=== PATIENT | male | born 1940 | race Caucasian/White ===

== ENCOUNTER 2022-02-06 14:42 | Emergency (ER) | payer MEDICARE ==
[~2022-02-06] VITALS: Ht 182.9 cm; Wt 108.9 kg
[2022-02-06 15:48] LABS: BASOPHILS % (AUTO) 0.6 % (0.0-5.0); EOSINOPHILS % (AUTO) 4.9 % (0.0-8.0); HEMATOCRIT 43.7 % (42-54); LYMPHOCYTES % (AUTO) 36.2 % (21.0-51.0); MEAN CORPUSCULAR HEMOGLOBIN 32.3 pg (27.0-33.0); MEAN CORPUSCULAR HGB CONC 34.3 g/dL (32.0-36.0); PLATELET COUNT (AUTO) 197 K/uL (130-400); RED BLOOD CELL COUNT(AUTO) 4.65 MIL/uL (4.50-6.20); RED CELL DISTRIBUTION WIDTH 13.5 % (11.0-15.5); WHITE BLOOD COUNT (AUTO) 6.2 K/uL (4.8-10.8)
[2022-02-06 15:58] LABS: CREATININE 1.2 mg/dL (0.5-1.5); POTASSIUM 3.7 mmol/L (3.5-5.1)
[2022-02-06 16:05] LABS: ALBUMIN 3.7 g/dL (3.5-5.0); TOTAL PROTEIN, SERUM 7.6 g/dL (6.0-8.3)
[2022-02-06 16:36] LABS: APPEARANCE,URINE CLEAR (CLEAR); BILIRUBIN,URINE NEGATIVE (NEGATIVE); COLOR,URINE LIGHT-YELLOW (YELLOW); GLUCOSE, URINE (UA) NEGATIVE (NEGATIVE); KETONES,URINE NEGATIVE (NEGATIVE); LEUKOCYTE ESTERASE ,URINE NEGATIVE Leu/uL (NEGATIVE); NITRATE,URINE NEGATIVE (NEGATIVE); OCCULT BLOOD,URINE NEGATIVE (NEGATIVE); PH,URINE 6.5 (5.0-8.0); PROTEIN,URINE NEGATIVE (NEGATIVE); UROBILINOGEN,URINE 0.2 mg/dL (0.2-1.0)
[2022-02-06 16:38] LABS: RBC,URINE 0-1 /HPF (0-1); WBC,URINE 0-1 /HPF (0-1)
[2022-02-06 17:08] VITALS: BP 160/74
== END 2022-02-06 17:08 | disposition home or self-care (01) ==
LOC: EDH 14:42
DX: R04.0 Epistaxis (principal); Z86.718 Personal history of other venous thrombosis and embolism; I10 Essential (primary) hypertension; T50.905A Adverse effect of unspecified drugs, medicaments and biological substances, initial encounter; Y92.89 Other specified places as the place of occurrence of the external cause
CPT/HCPCS: 36415; 80053; 81001; 83690; 84484; 85025; 86850; 86900; 86901; 93005

== ENCOUNTER 2022-05-18 16:08 | Emergency (ER) | payer MEDICARE ==
[~2022-05-18] VITALS: Ht 182.9 cm; Wt 108.9 kg
[2022-05-18 16:27] LABS: BASOPHILS % (AUTO) 0.7 % (0.0-5.0); EOSINOPHILS % (AUTO) 4.5 % (0.0-8.0); HEMATOCRIT 44.5 % (42-54); LYMPHOCYTES % (AUTO) 43.3 % (21.0-51.0); MEAN CORPUSCULAR HEMOGLOBIN 31.7 pg (27.0-33.0); MEAN CORPUSCULAR HGB CONC 34.4 g/dL (32.0-36.0); MEAN CORPUSCULAR VOLUME 92.1 fL (79-99); MONOCYTES % (AUTO) 11.6 % (3.0-13.0); NEUTROPHILS % (AUTO) 39.4 % (40.0-77.0); PLATELET COUNT (AUTO) 208 K/uL (130-400); RED BLOOD CELL COUNT(AUTO) 4.83 MIL/uL (4.50-6.20); RED CELL DISTRIBUTION WIDTH 13.4 % (11.0-15.5)
[2022-05-18 16:39] LABS: CREATININE 1.3 mg/dL (0.5-1.5); POTASSIUM 3.7 mmol/L (3.5-5.1)
[2022-05-18 16:43] LABS: ALBUMIN 3.7 g/dL (3.5-5.0); TOTAL PROTEIN, SERUM 7.6 g/dL (6.0-8.3)
[2022-05-18] MEDS ORDERED: IOHEXOL 350 MG/ML 100ML INFUS..BTL IV ONE (18:20)
[2022-05-19 00:45] VITALS: BP 145/71
== END 2022-05-19 04:59 | disposition home or self-care (01) ==
LOC: EDH 16:08
DX: R07.89 Other chest pain (principal); E78.00 Pure hypercholesterolemia, unspecified; I10 Essential (primary) hypertension; Z90.49 Acquired absence of other specified parts of digestive tract
CPT/HCPCS: 99285; 71270; 71045; 84484; 80053; 85025; 36415; 93005; Q9967

== ENCOUNTER → 2023-03-06 | Outpatient (CLI) | payer MEDICARE | END | disposition home or self-care (01) | LOC: SHCH 15:39 | PROVIDERS: ATTEND Student in an Organized Health Care Education/Training Program | DX: R94.31 Abnormal electrocardiogram [ECG] [EKG] (principal); I10 Essential (primary) hypertension; E78.5 Hyperlipidemia, unspecified | CPT/HCPCS: 93306 ==

== ENCOUNTER 2023-04-08 06:29 | Day surgery (SDC) | payer MEDICARE ==
[2023-04-04 12:30] VITALS: BP 161/76; PULSE 57; RESP 18
[2023-04-04 12:33] LABS: BASOPHILS # (AUTO) 0.05 K/uL (0.00-0.20); BASOPHILS % (AUTO) 0.8 % (0.0-5.0); EOSINOPHILS # (AUTO) 0.23 K/uL (0.00-0.70); EOSINOPHILS % (AUTO) 3.7 % (0.0-8.0); HEMATOCRIT 47.1 % (42-54); IMMATURE GRANULOCYTE ABSOLUTE 0.02 K/uL (0-1); LYMPHOCYTES # (AUTO) 2.4 K/uL (1.0-4.8); LYMPHOCYTES % (AUTO) 38.3 % (21.0-51.0); MEAN CORPUSCULAR HEMOGLOBIN 31.5 pg (27.0-33.0); MEAN CORPUSCULAR HGB CONC 34.2 g/dL (32.0-36.0); MEAN CORPUSCULAR VOLUME 92.2 fL (79-99); MONOCYTES # (AUTO) 0.6 K/uL (0.1-1.0); MONOCYTES % (AUTO) 10.1 % (3.0-13.0); NEUTROPHILS # (AUTO) 2.9 K/uL (1.8-7.7); NEUTROPHILS % (AUTO) 46.8 % (40.0-77.0); PLATELET COUNT (AUTO) 204 K/uL (130-400); RED BLOOD CELL COUNT(AUTO) 5.11 MIL/uL (4.50-6.20); RED CELL DISTRIBUTION WIDTH 13.7 % (11.0-15.5); WHITE BLOOD COUNT (AUTO) 6.2 K/uL (4.8-10.8)
[2023-04-04 12:47] LABS: INR <= 0.93 (0.85-1.15); PROTHROMBIN TIME 10.7 SEC (9.6-11.6)
[2023-04-04 12:48] LABS: PARTIAL THROMBOPLASTIN TIME 28.3 SEC (26.3-35.5)
[2023-04-04 12:52] LABS: APPEARANCE,URINE CLEAR (CLEAR); BILIRUBIN,URINE NEGATIVE (NEGATIVE); COLOR,URINE COLORLESS (YELLOW); GLUCOSE, URINE (UA) NEGATIVE (NEGATIVE); KETONES,URINE NEGATIVE (NEGATIVE); LEUKOCYTE ESTERASE ,URINE NEGATIVE Leu/uL (NEGATIVE); NITRATE,URINE NEGATIVE (NEGATIVE); OCCULT BLOOD,URINE NEGATIVE (NEGATIVE); PH,URINE 6.5 (5.0-8.0); PROTEIN,URINE NEGATIVE (NEGATIVE); UROBILINOGEN,URINE 0.2 mg/dL (0.2-1.0)
[2023-04-04 12:54] LABS: ADD UA MICROSCOPIC NO
[2023-04-04 13:00] LABS: CREATININE 1.4 mg/dL (0.5-1.5); POTASSIUM 4.5 mmol/L (3.5-5.1)
[2023-04-04 13:08] LABS: B-TYPE NATRIURETIC PEPTIDE 26 pg/mL (0-100)
[~2023-04-08] VITALS: Ht 182.9 cm; Wt 110.0 kg
[2023-04-08] VITALS (11 sets, daily range): BP systolic 139–171; BP diastolic 58–95; PULSE 43–55; RESP 12–17
[~2023-04-08 06:29] MED LIST: AEC81 PO; APIX5TAB PO; BRIM5DRO5 OD; CHOL-34 PO; CYAN-118 PO; DORZ10DR19 OU; EZET10TA48 PO; FEXO1TAB8 PO; FOLIC ACID PO; LATA2.5D14 OU; LOSA25TA41 PO; METO-408 PO
[2023-04-08] MEDS: 0.9%NACL 1000ML 1,000 ML IV ONE (07:11)
[2023-04-08] MEDS ORDERED: LIDOCAINE HCL 400MG/20ML VIAL ONE (10:16)
[2023-04-08] MEDS ORDERED: MIDAZOLAM HCL 1 MG/ML 2ML VIAL ONE ×2 (10:17→10:40)
[2023-04-08] MEDS ORDERED: HEPARIN 10,000 UNIT/10ML (1,000 UNIT/ML) VIAL ONE (10:17)
[2023-04-08] MEDS ORDERED: FENTANYL CITRATE PF 50 MCG/1 ML 2ML VIAL ONE (10:17)
[2023-04-08] MEDS ORDERED: VERAPAMIL HCL 2.5 MG/ML VIAL ONE (10:17)
[2023-04-08] MEDS ORDERED: NITROGLYCERIN 50MG VIAL ONE (10:17)
[2023-04-08] MEDS ORDERED: IOHEXOL 350 MG/ML 100ML INFUS..BTL IV ONE (10:19)
[2023-04-08] MEDS ORDERED: ASPIRIN 325MG EC TAB PO ONE (11:17)
[2023-04-08] MEDS ORDERED: CLOPIDOGREL 300MG TAB ONE (11:17)
[2023-04-08] MEDS ORDERED: EPTIFIBATIDE 75MG/100ML BOTTLE 100 ML IV ONE (11:20)
[2023-04-08] MEDS ORDERED: EPTIFIBATIDE 2 MG/ML 10 ML VIAL IVP ONE (11:20)
[2023-04-08] MEDS ORDERED: IOHEXOL-350 75 ML VIAL IV ONE (11:38)
[2023-04-08] MEDS ORDERED: IOHEXOL-350 50ML VIAL IV ONE (11:58)
[2023-04-08] MEDS ORDERED: 0.9%NACL 1000ML 1,000 ML IV SCH (12:30)
[2023-04-08] MEDS ORDERED: GLUCAGON 1MG KIT 1 MG ML IM PRN (12:30)
[2023-04-08] MEDS ORDERED: DEXTROSE 50%-WATER 50 ML DISP.SYRIN IV PRN (12:30)
[2023-04-08] MEDS ORDERED: CLOP-31 PO (16:35)
[2023-04-09] MEDS ORDERED: CLOPIDOGREL 75MG TAB PO SCH (09:00)
== END 2023-04-08 17:10 | disposition home or self-care (01) ==
LOC: DAH 06:29
PROVIDERS: ATTEND Student in an Organized Health Care Education/Training Program
DX: I25.119 Atherosclerotic heart disease of native coronary artery with unspecified angina pectoris (principal); I11.0 Hypertensive heart disease with heart failure; I50.22 Chronic systolic (congestive) heart failure; I49.3 Ventricular premature depolarization; E78.5 Hyperlipidemia, unspecified; I44.2 Atrioventricular block, complete; I44.7 Left bundle-branch block, unspecified; I48.0 Paroxysmal atrial fibrillation; G47.33 Obstructive sleep apnea (adult) (pediatric); R94.31 Abnormal electrocardiogram [ECG] [EKG]; Z79.899 Other long term (current) drug therapy; Z98.890 Other specified postprocedural states; Z95.5 Presence of coronary angioplasty implant and graft; Z79.82 Long term (current) use of aspirin; Z79.01 Long term (current) use of anticoagulants; Z86.718 Personal history of other venous thrombosis and embolism; Z72.89 Other problems related to lifestyle
CPT/HCPCS: 80048; 83880; 85025; 85610; 85730; 81003; 36415 ×2; 71045; 93005; 93458; 92978; 93571; 85347 ×2; C9600; C1769 ×3; C1725 ×3; C1874 ×3; C1894; A4649; C1887; C1753; J3010; J3490 ×3; J7030; J1644 ×3; J2250 ×2; J1327 ×2; Q9967 ×3; A4215; A4222; A6260; A4221; A4663; A4216; A6206; A4606; Q9965 ×2; A4223 ×3; 96360; 96361; 99156; 99157

== ENCOUNTER → 2024-01-08 | Outpatient (CLI) | payer MEDICARE ==
[~2024-01-08] MED LIST changes: -AEC81 PO; +CLOP-31 PO; +CYAN-106 PO; -CYAN-118 PO; -METO-408 PO
== END | disposition home or self-care (01) ==
LOC: RAH 13:37
PROVIDERS: ATTEND Student in an Organized Health Care Education/Training Program
DX: I50.20 Unspecified systolic (congestive) heart failure (principal)
CPT/HCPCS: 93306

== ENCOUNTER → 2024-02-02 | Outpatient (CLI) | payer MEDICARE ==
[~2024-02-02] VITALS: Ht 182.9 cm; Wt 109.3 kg
[~2024-02-02] MED LIST changes: +BRIM5DRO2 OD
[2024-02-02 11:35] VITALS: BP 114/53; PULSE 62; RESP 18; TEMP 97.8
[2024-02-02 11:35] LABS: BASOPHILS # (AUTO) 0.03 K/uL (0.00-0.20); BASOPHILS % (AUTO) 0.5 % (0.0-5.0); EOSINOPHILS # (AUTO) 0.23 K/uL (0.00-0.70); EOSINOPHILS % (AUTO) 3.6 % (0.0-8.0); HEMATOCRIT 45.5 % (42-54); IMMATURE GRANULOCYTE ABSOLUTE 0.03 K/uL (0-1); LYMPHOCYTES # (AUTO) 2.1 K/uL (1.0-4.8); LYMPHOCYTES % (AUTO) 32.2 % (21.0-51.0); MEAN CORPUSCULAR HGB CONC 33.8 g/dL (32.0-36.0); MEAN CORPUSCULAR VOLUME 94.4 fL (79-99); MONOCYTES # (AUTO) 0.6 K/uL (0.1-1.0); MONOCYTES % (AUTO) 9.2 % (3.0-13.0); NEUTROPHILS # (AUTO) 3.5 K/uL (1.8-7.7); PLATELET COUNT (AUTO) 177 K/uL (130-400); RED BLOOD CELL COUNT(AUTO) 4.82 MIL/uL (4.50-6.20); RED CELL DISTRIBUTION WIDTH 13.5 % (11.0-15.5); WHITE BLOOD COUNT (AUTO) 6.4 K/uL (4.8-10.8)
[2024-02-02 12:15] LABS: CREATININE 1.3 mg/dL (0.5-1.3); POTASSIUM 4.3 mmol/L (3.5-5.1)
[2024-02-02 12:21] LABS: INR 0.96 (0.85-1.15); PROTHROMBIN TIME 10.8 SEC (9.6-11.6)
[2024-02-02 12:23] LABS: PARTIAL THROMBOPLASTIN TIME 26.7 SEC (26.3-35.5)
== END | disposition home or self-care (01) ==
LOC: EDSTATUS 10:00 → DAH 10:00
PROVIDERS: ATTEND Internal Medicine Cardiovascular Disease
DX: I25.10 Atherosclerotic heart disease of native coronary artery without angina pectoris (principal); I25.5 Ischemic cardiomyopathy; I44.7 Left bundle-branch block, unspecified; I50.20 Unspecified systolic (congestive) heart failure; R55 Syncope and collapse
CPT/HCPCS: 36415; 80048; 85025; 85610; 85730

== ENCOUNTER 2024-02-20 09:51 | Day surgery (SDC) | payer MEDICARE ==
[2024-02-17 08:56] LABS: BASOPHILS # (AUTO) 0.04 K/uL (0.00-0.20); BASOPHILS % (AUTO) 0.8 % (0.0-5.0); EOSINOPHILS # (AUTO) 0.26 K/uL (0.00-0.70); EOSINOPHILS % (AUTO) 5.2 % (0.0-8.0); HEMATOCRIT 46.4 % (42-54); IMMATURE GRANULOCYTE ABSOLUTE 0.03 K/uL (0-1); LYMPHOCYTES # (AUTO) 1.5 K/uL (1.0-4.8); LYMPHOCYTES % (AUTO) 29.6 % (21.0-51.0); MEAN CORPUSCULAR HEMOGLOBIN 31.4 pg (27.0-33.0); MEAN CORPUSCULAR HGB CONC 33.6 g/dL (32.0-36.0); MEAN CORPUSCULAR VOLUME 93.4 fL (79-99); MONOCYTES # (AUTO) 0.5 K/uL (0.1-1.0); MONOCYTES % (AUTO) 9.9 % (3.0-13.0); NEUTROPHILS # (AUTO) 2.7 K/uL (1.8-7.7); NEUTROPHILS % (AUTO) 53.9 % (40.0-77.0); PLATELET COUNT (AUTO) 182 K/uL (130-400); RED BLOOD CELL COUNT(AUTO) 4.97 MIL/uL (4.50-6.20); RED CELL DISTRIBUTION WIDTH 13.6 % (11.0-15.5)
[2024-02-17 09:01] LABS: CREATININE 1.4 mg/dL (0.5-1.3); POTASSIUM 4.4 mmol/L (3.5-5.1)
[2024-02-17 09:03] LABS: INR <= 0.93 (0.85-1.15); PROTHROMBIN TIME 10.3 SEC (9.6-11.6)
[2024-02-17 09:04] LABS: PARTIAL THROMBOPLASTIN TIME 27.1 SEC (26.3-35.5)
[2024-02-17 09:19] VITALS: BP 136/61; PULSE 65; RESP 18; TEMP 97.7
[2024-02-20] VITALS (10 sets, daily range): BP systolic 112–160; BP diastolic 41–79; PULSE 66–79; RESP 16; TEMP 97.3–98.2
[~2024-02-20] VITALS: Ht 182.9 cm; Wt 110.0 kg
[~2024-02-20 09:51] MED LIST changes: -BRIM5DRO5 OD; -CLOP-31 PO; -FEXO1TAB8 PO
[2024-02-20] MEDS ORDERED: 0.9%NACL 1000ML 1,000 ML IV SCH (11:30)
[2024-02-20] MEDS ORDERED: MIDAZOLAM HCL 1 MG/ML 2ML VIAL ONE ×3 (13:21→15:41)
[2024-02-20] MEDS ORDERED: LIDOCAINE HCL 400MG/20ML VIAL ONE (13:21)
[2024-02-20] MEDS ORDERED: MEPERIDINE-PF 25 MG/ML SYG ONE ×3 (13:21→15:40)
[2024-02-20] MEDS ORDERED: HEParin-NS 1,000 UNIT/500 ML 500 ML IV ONE (13:22)
[2024-02-20] MEDS ORDERED: ceFAZolin SODIUM 1 GM VIAL ONE (14:01)
[2024-02-20] MEDS ORDERED: BUPIvacaine/PF 0.25% 30ML VIAL IJ ONE (14:09)
[2024-02-20] MEDS ORDERED: LIDOCAINE HCL 1% MDV 50ML VIAL ONE (14:09)
[2024-02-20] MEDS ORDERED: IOHEXOL-350 50ML VIAL IV ONE (14:10)
[2024-02-20] MEDS ORDERED: acetaMINOPHEN 325 MG TAB PO PRN (17:00)
[2024-02-20] MEDS ORDERED: TRAM50TA4 PO (17:00)
[2024-02-20] MEDS ORDERED: acetaMINOPHEN WITH coDEINE 1 TAB TAB PO PRN (17:00)
--- NOTE | 2024-02-20 18:52 | NUR ---
BIOTRONIK TEMPORARY PATIENT IDENTIFICATION CARD AND BOOKLET GIVEN TO PT AND
--- NOTE | 2024-02-20 21:05 | EKG ---
[facility] Test Date: 2024-02-20 Test Time: 18:21:18 Pat Name: SAED DICKENS Department: [facility] Room: Gender: M Telephone Assembler: BONI JEREZ : 1940 Requested By: CANDICE CLEMENS Order Number: [id number] Reading MD: Mack Zavaleta Measurements Intervals [place] Rate: 74 P: 85 UT: 147 QRS: 220 QRSD: 142 T: 15 QT: 463 QTc: 515 Interpretive Statements Atrial-sensed ventricular-paced rhythm Compared to ECG 04/04/2023 12:18:29 Sinus rhythm no longer present Ventricular premature complex(es) no longer present First degree AV block no longer present Left bundle-branch block no longer present Electronically Signed On 02-21-2024 12:16:53 COMMERCIAL COORDINATOR by Mack Zavaleta Please click the below link to view image of tracing.
--- NOTE | 2024-02-20 21:23 | HMCIMG ---
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 FINDINGS: There is been interval placement of a left chest wall biventricular pacemaker with an interrupted leads. There is no identified pneumothorax. The lungs are clear. Cardiac size unremarkable. The bony structures are within normal limits. IMPRESSION: There is no evidence for complication status post pacemaker placement.
[2024-02-22] MEDS ORDERED: CALC-129 PO (23:52)
[2024-02-22] MEDS ORDERED: FOLI1 PO (23:52)
[2024-02-22] MEDS ORDERED: CLOP-31 PO (23:52)
[2024-02-22] MEDS ORDERED: POLY17PO4 PO (23:52)
== END 2024-02-20 19:36 | disposition home or self-care (01) ==
LOC: DAH 09:51
PROVIDERS: ATTEND Internal Medicine Cardiovascular Disease
DX: I49.5 Sick sinus syndrome (principal); I25.5 Ischemic cardiomyopathy; I44.7 Left bundle-branch block, unspecified; R55 Syncope and collapse; I45.89 Other specified conduction disorders; I25.10 Atherosclerotic heart disease of native coronary artery without angina pectoris; I44.2 Atrioventricular block, complete; I49.3 Ventricular premature depolarization; I11.0 Hypertensive heart disease with heart failure; I50.22 Chronic systolic (congestive) heart failure; E78.5 Hyperlipidemia, unspecified; Z86.718 Personal history of other venous thrombosis and embolism; Z86.711 Personal history of pulmonary embolism; G47.33 Obstructive sleep apnea (adult) (pediatric); Z99.89 Dependence on other enabling machines and devices; Z98.890 Other specified postprocedural states; Z79.899 Other long term (current) drug therapy
CPT/HCPCS: A4223 ×3; C1769; C1894 ×3; C2621; C1900; C1898 ×2; C1730 ×2; J0690; J3490 ×2; J0665; J2250 ×3; J2175 ×3; J1644; A4215; A4222; A4221; A4663; A4216; A4606; 33208; 33225; 36415; 71045; 80048; 85025; 85610; 85730; 93005; 93619; 99156; 99157; Q9967

== ENCOUNTER 2025-01-17 02:54 | Observation (INO) | payer MEDICARE ==
[~2025-01-17] VITALS: Ht 182.9 cm; Wt 104.2 kg
[2025-01-17 03:31] LABS: IMMATURE GRANULOCYTE ABSOLUTE 0.04 K/uL (0-1); NUCLEATED RED BLOOD CELLS 0.0 % (0.0-0.19); PLATELET COUNT (AUTO) 170 K/uL (130-400); RED BLOOD CELL COUNT(AUTO) 4.93 MIL/uL (4.50-6.20); RED CELL DISTRIBUTION WIDTH 13.7 % (11.0-15.5); WHITE BLOOD COUNT (AUTO) 7.2 K/uL (4.8-10.8)
[2025-01-17 03:36] LABS: CREATININE 1.1 mg/dL (0.5-1.3); GLOMERULAR FILTR. RATE CALC 66.0 mL/min (>90); GLUCOSE,RANDOM 150.0 mg/dL (70-105); SODIUM SERUM 136.0 mmol/L (136-145); UREA NITROGEN, BLOOD 16.0 mg/dL (7-18)
--- NOTE | 2025-01-17 03:41 | HMCIMG ---
EXAM: CR Chest, 1 View. CLINICAL HISTORY: CHEST PAIN COMPARISON: None provided. FINDINGS: LUNGS: There is no mass, infiltrate, or acute pulmonary abnormality. PLEURAL SPACES: No evidence of pleural effusion or pneumothorax. MEDIASTINUM: The cardiomediastinal silhouette is within normal limits. BONES: No acute osseous abnormality. IMPRESSION: Left cardiac pacemaker present, cardiac leads superimposed over atrium and ventricle, respectively No acute cardiopulmonary pathology is evident. /[place]
[2025-01-17 03:42] LABS: CREATINE KINASE, TOTAL 114.0 U/L (21-232)
--- NOTE | 2025-01-17 03:56 | ERN ---
ED Note History of Present Illness Stated Complaint: CHEST PAIN Chief Complaint: Chest Pain Time Seen by MD: 02:57 Dictation: This is an extremely pleasant 84-year-old male who presented to the emergency room complaining of lower chest discomfort and severe abdominal bloating. He st ated that he started around 12 midnight and he has worsening nausea since then. No vomitings or diarrhea. Patient had a a pack of Z-Roshan at home and he thought he was coming down with a cold and took the Z-Roshan on an empty stomach. He had a very small bowel movement. No fever chills or rigors. There is no diaphoresis palpitations or radiation of pain to jaw or arm most of his symptoms seemed abdominal. Temperature 97.4 pulse 88 respirations 20 blood pressure 183/89 with a pulse oximetry of 100% on room air Chronic medical problems include DVT/PE on Eliquis, hypertension, hypercholesterolemia, history of glaucoma, coronary artery disease status post CABG, atrial fibrillation and pacer/AICD Allergies: Coded Allergies: No Known Allergies (Unverified Allergy, Unknown, 05/18/22) No Known Drug Allergies (Unverified Allergy, Unknown, 02/20/24) Home Meds Reported Medications Calcium/Magnesium/Zinc (Esygpkq-Tdawyvvfl-Alof Tab) 333 Mg-133 Mg-5 Mg Tablet, 1 EACH PO DAILY, TAB 02/22/24 Clopidogrel Bisulfate (Plavix) 75 Mg Tablet, 1 TAB PO DAILY for 30 Days, #30 TAB 0 Refills 02/22/24 Folic Acid (Folvite) 1 Mg Tab, 1 TAB PO DAILY for 30 Days, #30 TAB 0 Refills 02/22/24 Polyethylene Glycol 3350 (Miralax) 17 Gram Powd.pack, 1 PACKET PO HS for constipation for 2 Days, #2 PACKET 0 Refills dissolve in water 02/22/24 Brimonidine Tartrate (Alphagan P) 0.1 % Drops, 1 DROP OD BID for 30 Days, ML 0 Refills 02/02/24 Ezetimibe (Ezetimibe) 10 Mg Tablet, 10 MG PO HS, TAB 04/04/23 Cyanocobalamin (Vitamin B-12) (Vitamin B12) 1,000 Mcg Tablet, 1000 MCG PO HS, TAB 04/04/23 Apixaban (Eliquis) 5 Mg Tablet, 5 MG PO BID, TAB 04/04/23 Cholecalciferol (Vitamin D3) (Vitamin D3) 25 Mcg (1000 Unit) Tablet, 25 MCG PO DAILY, TAB 04/04/23 Dorzolamide HCl/Pf (Dorzolamide 2% Eye Drop) 2 % Drops, 1 DROP OU BID, DROP 04/04/23 Latanoprost (Latanoprost) 0.005 % Drops, 1 DROP OU HS, DROP 04/04/23 Past Medical History Past Medical History: CAD, DVT, Glaucoma, High Cholesterol, Heart Disease, Hypertension, Other Additional Past Medical Hx: P.E Surgical History: Appendectomy, CABG, Pacer/AICD Surgical History Other: RT ANKLE Family History: Negative Social History: Negative RN Note Reviewed/Agreed w/PFSH: Yes Review of System Dictation Constitutional: Negative for fever,chills, and weight loss Eyes: Negative for injury, pain,redness, and discharge ENT: Negative for injury,pain or swelling Cardiovascular: Negative for chest pain, palpitations, and edema Respiratory: Negative for shortness of breath, cough, and wheezing, Abdomen/GI: Positive for abdominal pain, nausea,constipation denied vomiting, diarrhea, and Back: Negative for injury and pain : Negative for injury, bleeding and discharge MS/Extremity: Negative for injury and deformity Skin: Negative for rash, and discoloration Neuro: Negative for headache, weakness, numbness, tingling, and seizure Psych: Negative for suicide ideation, homicidal ideation, and hallucinations Initial Vital Sign VS Vital Signs Date Time Temp Pulse Resp B/P (MAP) Pulse Ox O2 Delivery O2 Flow Rate FiO2 01/17/25 02:55 97.3 88 20 183/89 100 Room Air 01/17/25 03:16 0 21 Physical Exam Dictation General: awake, alert, NAD Head/Face: Normocephalic, atraumatic Eyes: PERRL, EOMI, vision at baseline ENT: oral cavity clear, TMs clear, no signs of infection Neck: Trachea midline, supple, no nuchal rigidity Cardiovascular: RRR, normal S1/S2, No MRGs, no JVD Respiratory: CTAB, no respiratory distress, No rales or wheezes Abdomen: Soft, bloated diffusely tender to deep palpation, normal bowel sounds, no guarding or rebound. Skin: Warm, dry, normal turgor, no rash MS/Extremity: Pulses equal, no cyanosis, neurovascular intact, FROM Neuro: COAx4, GCS 15, strength 5/5, CN 2-12 intact, normal cerebellar exam, normal gait, Psych: Normal behavior, mood, and affect normal Extremities-trace edema without any palpable cords, Homans sign is negative Results (Laboratory/Radiology) Laboratory/Radiology Laboratory Tests Test 01/17/25 03:22 01/17/25 05:12 White Blood Count 7.2 K/uL (4.8-10.8) Red Blood Count 4.93 MIL/uL (4.50-6.20) Hemoglobin 15.9 g/dL (14.0-18.0) Hematocrit 46.5 % (42-54) Mean Corpuscular Volume 94.3 fL (79-99) Mean Corpuscular Hemoglobin 32.3 pg (27.0-33.0) Mean Corpuscular Hemoglobin Concent 34.2 g/dL (32.0-36.0) Red Cell Distribution Width 13.7 % (11.0-15.5) Platelet Count 170 K/uL (130-400) Mean Platelet Volume 9.7 fL (7.5-10.5) Immature Granulocyte % (Auto) 0.6 % (0-1) Neutrophils (%) (Auto) 76.5 % (40.0-77.0) Lymphocytes (%) (Auto) 15.7 % (21.0-51.0) L Monocytes (%) (Auto) 5.8 % (3.0-13.0) Eosinophils (%) (Auto) 0.8 % (0.0-8.0) Basophils (%) (Auto) 0.6 % (0.0-5.0) Neutrophils # (Auto) 5.5 K/uL (1.8-7.7) Lymphocytes # (Auto) 1.1 K/uL (1.0-4.8) Monocytes # (Auto) 0.4 K/uL (0.1-1.0) Eosinophils # (Auto) 0.06 K/uL (0.00-0.70) Basophils # (Auto) 0.04 K/uL (0.00-0.20) Absolute Immature Granulocyte (auto 0.04 K/uL (0-1) Nucleated Red Blood Cells 0.0 % (0.0-0.19) Sodium Level 136 mmol/L (136-145) Potassium Level 4.0 mmol/L (3.5-5.1) Chloride Level 98 mmol/L (101-111) L Carbon Dioxide Level 28 mmol/L (21-32) Blood Urea Nitrogen 16 mg/dL (7-18) Creatinine 1.1 mg/dL (0.5-1.3) Glomerular Filtration Rate Calc 66 mL/min (>90) Random Glucose 150 mg/dL (70-105) H Total Calcium 8.8 mg/dL (8.5-10.1) Total Creatine Kinase 114 U/L (21-232) Troponin I High Sensitivity 15 ng/L (4-75) Urine Color LIGHT-YELLOW (YELLOW) Urine Appearance CLEAR (CLEAR) Urine pH 6.0 (5.0-8.0) Urine Specific [place] 1.016 (1.001-1.031) Urine Protein 10 mg/dL (NEGATIVE) H Urine Glucose (UA) NEGATIVE mg/dL (NEGATIVE) Urine Ketones NEGATIVE mg/dL (NEGATIVE) Urine Occult Blood NEGATIVE (NEGATIVE) Urine Nitrate NEGATIVE (NEGATIVE) Urine Bilirubin NEGATIVE mg/dL (NEGATIVE) Urine Urobilinogen 0.2 mg/dL (0.2-1.0) Urine Leukocyte Esterase NEGATIVE [place]/uL Urine RBC 0-1 /HPF (0-1) Urine WBC 0-1 /HPF (0-1) Urine Bacteria Rare /HPF (None Seen) Labs Reviewed?: Yes EKG Comment: Twelve lead EKG done on 01/17/2025 at 3:01 a.m. showed a heart rate of 81, FL interval 122, QRS 144, QT/QTC 442/514 Impression normal sinus rhythm paced no acute changes EKG rhythm strip shows a normal sinus rhythm with a paced AV dual. Compared to old EKG done in February 22 2024 no new acute changes noted on current EKG Interpreted by ER MD Dr. Barton X-RAY Comment: REASON: CHEST PAIN ORDERING PHYSICIAN: ADAIR BARTON MD PROCEDURE: CXR1VW - CHEST 1VW EXAM: CR Chest, 1 View. CLINICAL HISTORY: CHEST PAIN COMPARISON: None provided. FINDINGS: LUNGS: There is no mass, infiltrate, or acute pulmonary abnormality. PLEURAL SPACES: No evidence of pleural effusion or pneumothorax. MEDIASTINUM: The cardiomediastinal silhouette is within normal limits. BONES: No acute osseous abnormality. IMPRESSION: Left cardiac pacemaker present, cardiac leads superimposed over atrium and ventricle, respectively No acute cardiopulmonary pathology is evident. /[place] DICTATED BY: ROSALIND WIGGINS Jr., MD DATE: 01/17/25440 ELECTRONICALLY SIGNED BY: ROSALIND WIGGINS Jr., MD DATE: 01/17/25440 ED Course ED Course Orders Procedure Category Date Status Time Vital Signs Per CPOE 01/17/25 Transmitted Routine 03:02 Chest 1vw RAD 01/17/25 Resulted 03:02 12 Lead Ekg Tracing- EKG 01/17/25 Complete Technical 03:02 Oxygen By Nc/Pulse Ox CPOE 01/17/25 Transmitted 03:02 Maintain Iv CPOE 01/17/25 Transmitted 03:02 Iv Insertion CPOE 01/17/25 Transmitted 03:02 Cardiac Monitoring CPOE 01/17/25 Transmitted 03:02 Pulse Oximetry With CPOE 01/17/25 Transmitted Vs And Prn 03:02 Cbc With Differential LAB 01/17/25 Complete 03:02 Activity: Br W/Brp CPOE 01/17/25 Transmitted With Assist 03:02 Creatine Kinase, Total LAB 01/17/25 Complete 03:02 Troponin I High LAB 01/17/25 Complete Sensitivity 03:02 Urinalysis Profile LAB 01/17/25 Complete 03:02 Basic Metabolic Panel LAB 01/17/25 Complete 03:02 Ondansetron 4mg Inj PHA 01/17/25 Complete (Zofran 4mg Inj) 03:34 Ondansetron 4mg Inj PHA 01/17/25 Complete (Zofran 4mg Inj) 04:00 Morphine 2mg Syg PHA 01/17/25 Complete (Morphine 2mg Syg) 04:00 Lidocaine Hcl 2% PHA 01/17/25 Complete Viscous (Lidocaine Hcl 04:00 Mag/Alum/Simeth 30ml PHA 01/17/25 Complete (Maalox Plus 30ml) 04:00 Dicyclomine Hcl PHA 01/17/25 Complete (Bentyl 10mg/5ml 04:00 Prochlorperazine PHA 01/17/25 Complete 10mg/2ml Inj 04:30 Morphine 4mg Syg PHA 01/17/25 Complete (Morphine 4mg Syg) 06:30 Ct Abdomen/Pelvis W/O CT 01/17/25 Resulted Contrast 06:16 Admit Orders ADM 01/17/25 Transmitted 09:25 Troponin I High LAB 01/17/25 In Process Sensitivity 09:25 *Nursing CPOE 01/17/25 Transmitted Communication: 09:25 Consistent Carb DIET 01/17/25 Transmitted Lunch Aspirin 81mg Ec Tab PHA 01/18/25 In Process (Aspirin 81mg Ec Tab 09:00 Acetaminophen 500mg PHA 01/17/25 In Process Tab (Tylenol 500mg T 09:30 Morphine 2mg Syg PHA 01/17/25 In Process (Morphine 2mg Syg) 09:30 Ondansetron 4mg PHA 01/17/25 In Process Tablet (Zofran 4mg 09:30 Enoxaparin Sodium 30 PHA 01/18/25 In Process Mg/0.3 Ml (Lovenox) 09:00 Cbc With Differential LAB 01/18/25 Verified 04:00 Basic Metabolic Panel LAB 01/18/25 Verified 04:00 Hemoglobin A1c LAB 01/18/25 Verified 04:00 Current Medications Medications (Trade) Dose Ordered Sig/Tracie Route PRN Reason Start Time Stop Time Status Last Admin Dose Admin Acetaminophen (TYLenol 500MG TAB) 1,000 mg DAILY PRN PO PAIN LEVEL 1 TO 3 01/17/25 09:30 02/16/25 09:29 Al Hydroxide/Mg Hydroxide (MAALox PLUS 30ML) 30 ml ONCE ONCE PO 01/17/25 04:00 01/17/25 04:01 DC 01/17/25 04:25 Aspirin (Aspirin 81mg Ec Tab) 81 mg DAILY PO 01/18/25 09:00 02/17/25 08:59 Dicyclomine HCl (Bentyl 10mg/5ml Syrup) 10 mg ONCE ONCE PO 01/17/25 04:00 01/17/25 04:01 DC 01/17/25 04:25 Enoxaparin Sodium (Lovenox) 30 mg DAILY SQ 01/18/25 09:00 02/17/25 08:59 Lidocaine HCl (Lidocaine HCl 2% Viscous) 10 ml ONCE ONCE PO 01/17/25 04:00 01/17/25 04:01 DC 01/17/25 04:26 Morphine Sulfate (morPHINE 2MG SYG) 2 mg ONCE ONCE IVP 01/17/25 04:00 01/17/25 04:01 DC 01/17/25 04:26 Morphine Sulfate (morPHINE 2MG SYG) 2 mg Q6H PRN IVP SEVERE PAIN (7-10) 01/17/25 09:30 01/24/25 09:29 Morphine Sulfate (morPHINE 4MG SYG) 4 mg ONCE ONCE IVP 01/17/25 06:30 01/17/25 06:31 DC 01/17/25 06:40 Ondansetron HCl (zoFRAN 4MG TABLET) 4 mg Q6H PRN PO NAUSEA/VOMITING 01/17/25 09:30 02/16/25 09:29 Ondansetron HCl (zoFRAN 4MG INJ) 4 mg ONCE ONCE IVP 01/17/25 04:00 01/17/25 04:01 DC 01/17/25 03:43 Ondansetron HCl (zoFRAN 4MG INJ) 4 mg STK-MED ONCE .ROUTE 01/17/25 03:34 01/17/25 03:34 DC Prochlorperazine Edisylate (Compazine 10mg/ 2ml Inj) 5 mg ONCE ONCE IV 01/17/25 04:30 01/17/25 04:31 DC 01/17/25 04:58 Vital Signs Date Time Temp Pulse Resp B/P (MAP) Pulse Ox O2 Delivery O2 Flow Rate FiO2 01/17/25 07:30 97 Room Air* 0 01/17/25 06:20 92 14 166/86 98 Room Air* 0 01/17/25 03:16 98.4 76 14 183/91 97 Room Air* 0 21 01/17/25 02:55 97.3 88 20 183/89 100 Room Air HEART Score Response (Comments) Value History: Moderate suspicion (+1) 1 EKG: Normal 0 Age: > 65yrs (+2) 2 Risk Factors: 3+ risk factors (+2) 2 Initial Troponin: Normal limit (0) 0 HEART Score Risk: Mod Risk for MACE (4-6) Total 5 Medical Decision Making MDM Differential diagnosis: Acute coronary syndrome, unstable angina Esophagitis, gastroesophageal reflux disease, hiatal hernia, gastritis, pericarditis, costochondritis, pleurisy, adverse effects of azithromycin constipation This is an extremely pleasant 84-year-old male who presented to the emergency room complaining of lower chest discomfort and severe abdominal bloating. He stated that he started around 12 midnight and he has worsening nausea since then. No vomitings or diarrhea. Patient had a a pack of Z-Roshan at home and he thought he was coming down with a cold and took the Z-Roshan on an empty stomach. He had a very small bowel movement. No fever chills or rigors. There is no diaphoresis palpitations or radiation of pain to jaw or arm most of his symptoms seemed abdominal. 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 labs reviewed CBC is with a normal limits BNP 7 is normal except for BUN and creatinine of 16 and 1.1. Troponins are negative 4:30 a.m. patient continues to have severe nausea despite a dose of Zofran. We will give a trial of Compazine and GI cocktail 5:30 a.m. patient received multiple dose of antiemetics and continues to feel sick with the abdominal distention. I have requested CT scan of the abdomen and pelvis to evaluate his abdominal symptoms recommended admission to the hospital for intractable nausea vomitings. Care will be transitioned to oncoming physician at 7:00 a.m. Rationale: Tests considered and ordered secondary to shared decision making include: Labs EKG chest x-ray Previous outside records reviewed: Old ER visits. Risk of complication and/or morbidity or mortality of patient management: None Medications-Per medication reconciliation Need for hospitalization: Patient does meet criteria for hospitalization. Need for emergency major/minor surgery: No There are no social concerns with this patient. Prescription drug management Prescriptions will include symptomatic care Patient's prior external medical records from other ER visits were reviewed by me as indicated. Prior testing and results from previous visits were reviewed. Prior tests were taken into account with medical decision making and resource utilization, independent historian/historians were used to obtain complete medical history. I independently interpreted the test that were performed, results were reviewed by me and considered findings on radiology if ordered. Medical management and examination interpretation discussions were had by me with other qualified healthcare professionals as indicated for the patient's care. 84-year-old male with epigastric pain, and chest pain, on and off, multiple medical problems include pacemaker with AFib no history of are stents per patient, CT of the belly was negative admitting for further care and evaluation rule out ACS Problem List Problem List: (1) Chest pain (2) Constipation (3) Gastritis and gastroduodenitis (4) Dyspepsia (5) Medication side effect DX & DISP Disposition: Inpatient Departure Impression: Primary Impression: Gastritis and gastroduodenitis Additional Impressions: Dyspepsia, Constipation, Medication side effect, Chest pain Condition: Stable Additional Instructions: Patient was informed of all the diagnostic labs and procedures conducted in the emergency room today and demonstrated understanding of the results. I personally reviewed and interpreted all the diagnostic exams performed in the ER today. The patient will be admitted to the hospital for further treatment and evaluation. Disposition-admit to facility Condition-stable/guarded Course-uncertain at this time Pain status-decreased Assessment-exam unchanged Admission Certification- I certify that the patients status is appropriate and is based on my best clinical judgment and the patient's condition as documented in the medical records Referrals: AAMIR MENDEZ MD (PCP) ADAIR BARTON MD Jan 17, 2025 03:56 JV ORTEZ MD Jan 17, 2025 09:46
[2025-01-17] MEDS: DICYCLOMINE HCL 10 MG/5 ML ML PO ONE (04:25)
[2025-01-17] MEDS: MAG/ALUM/SIMETH 30 ML UDCUP PO ONE (04:25)
[2025-01-17] MEDS: LIDOCAINE HCL 2% VISCOUS 15 ML UDCUP PO ONE (04:26)
[2025-01-17] MEDS: PROCHLORPERAZINE 10MG/2ML INJ IV ONE (04:58)
[2025-01-17 05:23] LABS: APPEARANCE,URINE CLEAR (CLEAR); GLUCOSE, URINE (UA) NEGATIVE (NEGATIVE); LEUKOCYTE ESTERASE ,URINE NEGATIVE Leu/uL (NEGATIVE); NITRATE,URINE NEGATIVE (NEGATIVE); OCCULT BLOOD,URINE NEGATIVE (NEGATIVE)
[2025-01-17 05:24] LABS: ADD UA MICROSCOPIC YES
[2025-01-17 07:30] VITALS: O2SAT 97
--- NOTE | 2025-01-17 07:44 | HMCIMG ---
EXAM: CT Abdomen and Pelvis Without IV contrast CLINICAL HISTORY: Patient with abdominal bloating, distension, and severe nausea. TECHNIQUE: Axial computed tomography images of the abdomen and pelvis without intravenous contrast. CONTRAST: No IV contrast. COMPARISON: None provided. FINDINGS: LUNG BASES: The lung bases appear clear. No pleural effusions are seen. Pacemaker wires in the right atrium and ventricles. Scattered coronary artery calcifications. LIVER: Unremarkable. GALLBLADDER AND BILE DUCTS: The gallbladder appears within normal limits. No radioopaque gallstones are seen. No biliary ductal dilatation is evident. PANCREAS: Unremarkable. SPLEEN: Unremarkable. ADRENAL GLANDS: Unremarkable. KIDNEYS, URETERS, AND BLADDER: Hypodense cyst at the lower pole of the left kidney measuring 3.3 cm. Bilateral perinephric fat stranding, concerning for chronic renal disease. Recommend renal function test correlation. The kidneys appear within normal limits. There is no hydronephrosis or hydroureter. No urinary calculi are seen. STOMACH AND BOWEL: Unremarkable appearance of the stomach and bowel. No evidence of bowel obstruction. No evidence suggesting enteritis or colitis. Omental fat containing an umbilical hernia (2.4 x 1.8 cm). APPENDIX: No evidence of acute appendicitis on CT examination. PERITONEUM: No free fluid. No free air. LYMPH NODES: No lymphadenopathy is evident. REPRODUCTIVE: Mild to moderate prostatomegaly. Small omental fat containing bilateral inguinal hernia. VASCULATURE: Atherosclerotic calcifications in the aorta and its branches. No evidence of abdominal aortic aneurysm. BONES: Degenerative changes in the visualized vertebrae. No aggressive appearing osseous lesion. No acute osseous pathology evident. Pacemaker lines seen in situ. IMPRESSION: No acute intra-abdominal or pelvic abnormality. Mild hiatus hernia. Large bowel loops are moderately distended with fecal matter. Changes in constipation. No inflammatory bowel wall thickening. Omental fat containing an umbilical hernia. No features of bowel obstruction. No evidence of ascites. Bilateral perinephric fat stranding, concerning for chronic renal disease. Recommend renal function test correlation. 3.3 cm hypodense cyst at the lower pole of the left kidney. No renal calculus or hydronephrosis. Mild to moderate prostatomegaly. Small omental fat containing bilateral inguinal hernia. /[place]
[2025-01-17 08:00] VITALS: BP 144/75; PULSE 80; RESP 15; TEMP 97.4
--- NOTE | 2025-01-17 08:47 | EKG ---
[facility] Test Date: 2025-01-17 Test Time: 03:01:08 Pat Name: SADE DICKENS Department: [facility] Room: ED Gender: M Editor: [id number] : 1940 Requested By: ADAIR SCHWARTZ Order Number: [id number] Reading MD: Mack Zavaleta Measurements Intervals [place] Rate: 81 P: 127 HI: 122 QRS: 204 QRSD: 144 T: 67 QT: 442 QTc: 514 Interpretive Statements A-V dual-paced rhythm with some inhibition Compared to ECG 02/22/2024 19:37:54 AV dual-paced complex(es) or rhythm no longer present Electronically Signed On 01-17-2025 12:14:42 FREIGHT BRAKE OPERATOR by Mack Zavaleta Please click the below link to view image of tracing.
[2025-01-17 12:00] VITALS: BP 148/74; PULSE 79; RESP 17; TEMP 97.5
--- NOTE | 2025-01-17 14:52 | NUR ---
TRANSFER REPORT GIVEN TO NURSE SHAZIA. PATIENT CALM AND COOPERATIVE AT THE MOMENT. HOME MEDS RESUMES PER DR. JIM AND PROTONIX ORDER INPUTTED.
[2025-01-17 15:10] VITALS: BP 112/60; PULSE 78; RESP 20; TEMP 98.2
--- NOTE | 2025-01-17 17:12 | CONS ---
[facility] Cardiology Consultation Note Cardiology consult dictated for Adrián Zavaleta MD Date of service 01/17/2025 Primary draw fire operator: Dr. Gabbie talavera Chief complaint: Abdominal pain Reason for consult: Chest pain History of present illness: This is an 84-year-old male patient of Dr. Gabbie talavera presented for evaluation of severe abdominal pain radiating to lower chest and under his ribs. Cardiology consult was requested due to chest pain. Last night patient thought he was developing a cold and decided to start a Z-Roshan on an empty stomach at dinnertime. He went to bed and around midnight he woke up with severe abdominal pain was associated with bloating no nausea no vomiting or diaphoresis. In the emergency department cardiac enzymes were negative x3 and 12 lead EKG demonstrated AV pacing heart rate of 81 beats per minute. He does have a history of paroxysmal atrial fibrillation on chronic anticoagulation with Eliquis, CAD with proximal to mid LAD stent April 08, 2023, ischemic cardiomyopathy and a history of PE and DVT in 2015. On arrival blood pressure was 183/89 he was afebrile and pulse was 88 beats per minute. Chest x-ray demonstrated no acute abnormalities. Abdominal and pelvis CT demonstrated no acute intra-abdominal or pelvic abnormality. Currently the patient is feeling better tolerated lunch without a problem. Review of systems: 14 point review of systems performed pertinent positives and negatives discussed in HPI Past medical history: Positive for CAD, PE, DVT February 2015, ischemic cardiomyopathy, obstructive sleep apnea with CPAP use, orthostatic hypotension, left bundle branch block. Negative for CVA TIA, no liver thyroid disease. Past surgical history: Positive for proximal, mid LAD stent April 08, 2023. Conduction system disease Biotronik CHARGE AUTHORIZER-P by Dr. London on 02/20/2024. Allergies: No known allergies Family history: Noncontributory Social history: Patient is a winter [place] from [place] lives with . Denies tobacco alcohol illicit drug use Physical exam: Blood pressure 148/74 heart rate of 79 beats per minute and irregular, bilateral breath sounds clear to auscultation. Neck is supple no jugular vein distention no carotid bruits. Lower extremities no edema no cyanosis. The patient is alert awake and oriented. All others within normal limits. Assessment: Atypical chest pain Abdominal pain History of CAD with left heart catheterization stent placement to proximal and mid LAD April 08, 2023. Obstructive sleep apnea on CPAP therapy Atrial fibrillation on chronic anticoagulation with Eliquis Biotronik CHARGE AUTHORIZER- P permanent pacemaker 2024 History of Orthostatic hypotension PE, DVT February 2015 Plan: At this point we have an 84-year-old male presented for evaluation of atypical chest pain. He attributes abdominal pain radiating to lower chest and under his ribs to taking antibiotic on an empty stomach. He developed bloating and presented to the emergency department for further evaluation. He ruled out for ACS. He does have a history of coronary artery disease with stent placement to proximal and mid LAD April 08, 2023. Cardiac-mauricio the patient is stable and can be discharged home when approved by primary physician. He will need to follow-up with Dr. Gabbie talavera in 7-10 days. Lexiscan Cardiolite can be considered if he develops further cardiac symptoms. Addendum: Pain was very different than his symptoms at the time of his LAD stent placement. At that time he had no chest pain but complained of severe shortness of breath with the exertion and generalized tiredness and fatigue. This epigastric pain was very unlike his previous symptoms. Serial troponins have been normal electrocardiogram shows no acute changes. He did take a Z-Roshan before all of his symptoms started and took this on an empty stomach without eating. This may have contributed to some of his gas and bloating sensation. No further cardiac workup at this time. The patient can follow up with Dr. Talavera after discharge. ATTESTATION BY PHYSICIAN I have seen and examined the patient. I reviewed the documentation, medical decision making, and treatment plan as noted by the mid-level provider above. I agree with the findings and plan of care. ADRIÁN ZAVALETA MD, [facility] Jan 17, 2025 17:12 ADRIÁN ZAVALETA MD Jan 17, 2025 18:40
[2025-01-17] MEDS: EZETIMIBE 10 MG TAB PO SCH (19:52)
[2025-01-17] MEDS: CYANOCOBALAMIN (VITAMIN B-12) 1,000 MCG TABLET PO SCH (19:52)
[2025-01-17] MEDS: LATANOPROST 2.5 ML DROPS OU SCH (19:59)
[2025-01-17] MEDS: DORZOLAMIDE HCL OU SCH (19:59)
[2025-01-17 20:00] VITALS: BP 111/64; PULSE 69; RESP 20; TEMP 97.9; O2SAT 95
[2025-01-18] VITALS: BP 93/51; PULSE 78; RESP 20; TEMP 97.8
[2025-01-18 04:00] VITALS: BP 106/51; PULSE 92; RESP 20; TEMP 97.9
[2025-01-18 05:52] LABS: IMMATURE GRANULOCYTE ABSOLUTE 0.05 K/uL (0-1); NUCLEATED RED BLOOD CELLS 0.0 % (0.0-0.19); PLATELET COUNT (AUTO) 161 K/uL (130-400); RED BLOOD CELL COUNT(AUTO) 4.48 MIL/uL (4.50-6.20); RED CELL DISTRIBUTION WIDTH 13.9 % (11.0-15.5); WHITE BLOOD COUNT (AUTO) 8.9 K/uL (4.8-10.8)
[2025-01-18 06:02] LABS: CREATININE 1.5 mg/dL (0.5-1.3); GLOMERULAR FILTR. RATE CALC 45.0 mL/min (>90); GLUCOSE,RANDOM 103.0 mg/dL (70-105); SODIUM SERUM 135.0 mmol/L (136-145); UREA NITROGEN, BLOOD 22.0 mg/dL (7-18)
--- NOTE | 2025-01-18 06:12 | HP ---
DATE OF SERVICE: 01/17/2025 HISTORY AND PHYSICAL PRESENTING COMPLAINT: Chest pain. HISTORY OF PRESENT ILLNESS: An 84-year-old male with history of hypertension, obesity, CAD, atrial fibrillation, and glaucoma. Presents to the hospital with pain. Pain localized to the epigastric area. Denies shortness of breath. No palpitations or orthopnea. EKG showed sinus rhythm with no STEMI. Troponin was negative. Slightly elevated BP with a value of 183/89. No nausea or vomiting. Denies diarrhea. No bleeding tendencies. The patient has a CT of the abdomen done, which shows no acute finding. PAST MEDICAL HISTORY: * Hypertension. * Obesity. * Coronary artery disease. * Atrial fibrillation. * Glaucoma. PAST SURGICAL HISTORY: * Appendectomy. * Cardiac catheterization. * Pacemaker placement. * CABG. ALLERGIES: No known drug allergies. HOME MEDICATIONS: Reviewed. SOCIAL HISTORY: Lives with : No alcohol, tobacco or illicit drug use. FAMILY HISTORY: Noncontributory. REVIEW OF SYSTEMS: Greater than 10 systems were reviewed. Negative except as documented above. PHYSICAL EXAMINATION: GENERAL: An elderly male, awake. VITAL SIGNS: His temperature 97.3, pulse 80, respiratory rate 82, BP 144/75. HEENT: Eyes, no icterus. No oral thrush seen. Moist oral mucosa. NECK: Supple. No JVD or thyromegaly. LUNGS: Good air entry. No rales. No rhonchi. CARDIOVASCULAR SYSTEM: S1 and S2. Regular. No murmur. ABDOMEN: Obese. Bowel sound is present. Mild tenderness to the epigastric area. CENTRAL NERVOUS SYSTEM: Awake, alert and oriented x 3. No focal deficits. SKIN: No rashes. No itchiness. LYMPHATIC: No peripheral lymphadenopathy. BACK: No deformity, no pressure ulcer. MUSCULOSKELETAL: No joint swelling, erythema or tenderness. LABORATORY DATA: Troponin 18, sodium 136, potassium 4.0, BUN 16, creatinine 1.1. WBC 7.5, hemoglobin 15.9, platelets 170. Urinalysis negative. RADIOLOGY: CT of the abdomen and pelvis is unremarkable. ASSESSMENT: An 84-year-old male presented with chest pain. CURRENT PROBLEMS: Include, * Atypical chest pain. * Possible gastritis. * Hypertension. * Atrial fibrillation. * Obesity. PLAN: * The patient taken to medical floor for observation. * Troponin will be trended. * Medication reconciled. * Start the patient on Protonix. * Continue antiarrhythmics. * Cardiology evaluation. * Lovenox for DVT prophylaxis. * Monitor electrolytes. TID: [id number] RECEIPT: [id number]
[2025-01-18] MEDS: (Cholecalciferol (Vitamin D3) (Vitamin D3) 25 MCG) PO SCH (07:33)
[2025-01-18 08:00] VITALS: BP 132/76; PULSE 76; RESP 18; TEMP 97.7; O2SAT 97
[2025-01-18] MEDS: ASPIRIN 81 MG EC TAB PO SCH (08:28)
[2025-01-18] MEDS ORDERED: ENOXAPARIN SODIUM 30 MG/0.3 ML SQ SCH (09:00)
--- NOTE | 2025-01-18 11:44 | NUR ---
DCP:HOME Pt is a winter rodrigo who is currently here with his . Pt denies any DME, home health, or provider services. Pt states that he is able to complete ADLs independently. PCP is Dr. Angelika Vázquez and uses [facility] for any RX needs. At [place] pt will want to go home and pt drove into the hospital.
[2025-01-18 12:00] VITALS: BP 130/80; PULSE 87; RESP 18; TEMP 97.4
--- NOTE | 2025-01-18 14:55 | NUR ---
DISCHARGE ORDERS FOR PATIENT TO BE DISCHARGED HOME OBTAINED. DISCHARGE ORDERS AND DOCUMENTATION GIVEN TO PATIENT AT BEDSIDE. VOICED UNDERSTANDING. IV DISCONTINUED BY SHAZIA, SUPERVISOR/PORT DIRECTOR, CATHETER INTACT, NO S/S OF INFECTION NOTED TO SITE. PATIENT TOLERATED WELL. BANDS REMOVED PRIOR TO DISCHARGE. PENDING TRANSPORTATION.
--- NOTE | 2025-01-18 14:56 | NUR ---
DISCHARGE UNABLE TO MAKE FOLLOW UP APPOINTMENT WITH [employer]ENDING PLANT OPERATOR DUE TO NO ANSWER. ATTEMPTED 3 TIMES FOR DIESEL TRAILER MECHANIC ANSWER AND SCHEDULE APPOINTMENT WITH NO SUCCESS. PROVIDED PATIENT WITH CONTACT INFORMATION FOR CLINIC TO SCHEDULE APPOINTMENT AT HIS CONVENIENCE. PATIENT VOICED UNDERSTANDING.
--- NOTE | 2025-01-18 15:22 | NUR ---
DISCHARGE PT ADVISED TO CALL FAMILY FOR PICKUP, PT INSISTED ON DRIVING HIMSELF, STATED THAT HE DROVE HIMSELF HERE AND HE CAN DRIVE HIMSELF HOME, PT MADE AWARE OF RISKS, IV REMOVED AND INTACT WITH NO SIGNS OF REDNESS OR IRRITATION AT THIS TIME. PT ESCORTED OUT VIA WHEELCHAIR, NO SIGNS OF DISTRESS AT THIS TIME.
--- NOTE | 2025-01-18 17:41 | DS ---
Discharge Summary Hospital Course This is a 84-year-old male with history of hypertension, obesity, CAD, atrial fibrillation, and glaucoma. Presents to the hospital with pain. Pain localized to the epigastric area. Denies shortness of breath. No palpitations or orthopnea. EKG showed sinus rhythm with no STEMI. Troponin was negative. Slightly elevated BP with a value of 183/89. No nausea or vomiting. Denies diarrhea. No bleeding tendencies. The patient has a CT of the abdomen done, which shows no acute finding. FINAL DISCHARGE DIAGNOSIS: PLAN: Discharge patient to home today. New prescription for Protonix 40 mg p.o. daily. This case was reviewed and discussed with my supervising physician Dr. Jim and the above assessment and plan was formulated and agreed upon. ATTESTATION BY PHYSICIAN I have seen and examined the patient. I reviewed the documentation, medical decision making, and treatment plan as noted by the mid-level provider above. I agree with the findings and plan of care. ROBERT JIM MD, MIRTA L FNP Jan 18, 2025 17:41
== END 2025-01-18 15:20 | disposition home or self-care (01) ==
LOC: EDH 02:54 → EDHIP 09:25 → INTOOBSV 09:25 → UNDOADMOB 09:25 → EDHIP 15:10 → 3CH 15:10 → EDHIP 01-18 14:00
PROVIDERS: ADMIT Internal Medicine Infectious Disease; ATTEND Internal Medicine Infectious Disease
DX: R07.89 Other chest pain (principal); G47.33 Obstructive sleep apnea (adult) (pediatric); I10 Essential (primary) hypertension; K29.70 Gastritis, unspecified, without bleeding; R53.83 Other fatigue; R14.0 Abdominal distension (gaseous); E78.00 Pure hypercholesterolemia, unspecified; I25.10 Atherosclerotic heart disease of native coronary artery without angina pectoris; I48.0 Paroxysmal atrial fibrillation; K59.00 Constipation, unspecified; E66.9 Obesity, unspecified; Z79.01 Long term (current) use of anticoagulants; Z86.711 Personal history of pulmonary embolism; Z86.718 Personal history of other venous thrombosis and embolism; Z95.0 Presence of cardiac pacemaker; Z95.1 Presence of aortocoronary bypass graft; Z95.5 Presence of coronary angioplasty implant and graft; Z79.899 Other long term (current) drug therapy; Z98.890 Other specified postprocedural states; Z68.31 Body mass index [BMI] 31.0-31.9, adult
CPT/HCPCS: 99285; 74176; 96374; 71045; 96375 ×2; 96376; 82550; 84484 ×3; 80048 ×2; 85025 ×2; 81001; 36415 ×2; 93005; 83036; J2270 ×2; J0780; J2405; G0378